=== PATIENT | female | born 1995 | race Caucasian/White ===

== ENCOUNTER 2018-09-04 11:34 | Outpatient (CLI) | payer MEDICAID ==
[~2018-09-04] VITALS: Ht 157.5 cm; Wt 94.6 kg
[2018-09-04 11:51] VITALS: BP 102/55; PULSE 112; RESP 18; Ht 157.5 cm; Wt 94.6 kg
[2018-09-04] MEDS ORDERED: PNV11TAB PO (11:58)
--- NOTE | 2018-09-04 13:31 | PN ---
Triage Information Date/Time September 04, 2018 Reason for visit: Uterine contractions (Patient claims she has uterine contractions during driving which she feels mostly on her right side) Weeks of Gestation 28 /Para 1 para 0 Diabetes: none Hypertention: none Objective Vital Signs Date Temp Pulse Resp B/P (MAP) Pulse Ox O2 O2 Flow FiO2 Time Delivery Rate 09/04/18 98.3 112 18 102/55 11:51 (71) Heart Rate: 150's Heart Rate Comments Reactive for gestational age Contractions: None Results/Medications Result Diagram: 09/04/18 1234 Results 24 hrs Laboratory Tests Test 09/04/18 11:45 09/04/18 12:34 Urine Color YELLOW Urine Clarity CLEAR Urine pH 6.0 Urine Specific [place] 1.009 Urine Ketones NEGATIVE Urine Nitrite NEGATIVE Urine Bilirubin NEGATIVE Urine Urobilinogen NEGATIVE Urine Leukocyte Esterase 2+ H Urine Microscopic RBC 0 Urine Microscopic WBC 2 Urine Squamous Epithelial Cells FEW Urine Bacteria FEW A Urine Mucus FEW A Urine Hemoglobin NEGATIVE Urine Glucose NEGATIVE Urine Total Protein NEGATIVE White Blood Count 9.7 Red Blood Count 3.44 L Hemoglobin 9.7 L Hematocrit 29.3 L Mean Corpuscular Volume 85.2 Mean Corpuscular Hemoglobin 28.2 L Mean Corpuscular Hemoglobin Concent 33.1 Red Cell Distribution Width 13.6 Platelet Count 133 L Mean Platelet Volume 13.5 H Immature Granulocytes % 0.200 Neutrophils % 79.3 H Lymphocytes % 14.1 L Monocytes % 5.6 Eosinophils % 0.6 Basophils % 0.2 Nucleated Red Blood Cells % 0.0 Immature Granulocytes # 0.020 Neutrophils # 7.7 H Lymphocytes # 1.4 Monocytes # 0.5 Eosinophils # 0.1 Basophils # 0.0 Nucleated Red Blood Cells # 0.0 Imaging Results 1. Single live intrauterine fetus, cephalic presentation. The heart rate is 143 bpm. 2. Posterior placenta, grade 1, no previa or abruptio is evident. 3. The cervix is closed and measures 3.7 cm in length. 4. Amniotic fluid index 13.3 cm. 5. Biophysical profile score: 8/8. 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
--- NOTE | 2018-09-04 14:04 | TRIAGE ---
OB Triage Datetime Report Generated by CPN: 09/04/2018 14:04 Datetime: 09/04/2018 13:25 Stage of : OB Triage Datetime: 09/04/2018 13:01 Labor Evaluation Frequency: 0 Monitor Mode: External Pattern: Normal: <= 5 Contractions in 10 Minutes Resting Tone [place]: Relaxed Heart Rate FHR Baseline Rate: 145 Monitor Mode: External US Variability: Moderate 6-25 bpm Accelerations: 10X10 Decelerations: None Category: Category I Pain Assessment Pain Scale: 0 Pain Presence: None/Denies Pain Type: N/A Pain Goal: 3 Pain Relief Measures: Comfort Measures Datetime: 09/04/2018 12:56 Stage of : OB Triage Datetime: 09/04/2018 11:43 Stage of : OB Triage Assessment Type: Triage EGA: 28.6 Maternal Assessment Level of Consciousness: Fully Conscious DTR's/Clonus: DTRs 2+; No Clonus Headache: Denies Blurred Vision: No Respiratory Effort: Unlabored; Regular Rhythm; Equal Expansion Breath Sounds, Left: Clear and Equal Breath Sounds, Right: Clear and Equal Nausea/Vomiting: Denies RUQ Epigastric Pain: Denies Facial Edema: None Temperature Route: Axillary Fall Risk Assessment History of Falling: (0) No Secondary Diagnosis: (0) No Ambulatory Aid: (0) Bedrest/Nurse Assist IV Therapy: (0) No Gait: (0) Normal/Bedrest/Immobile Mental Status: (0) Oriented to Own Ability Fall Score: 0 Fall Risk Score Definition: No Risk: No action required Labor Evaluation Frequency: 0 Monitor Mode: External Pattern: Normal: <= 5 Contractions in 10 Minutes Resting Tone [place]: Relaxed Heart Rate FHR Baseline Rate: 145 Monitor Mode: External US Variability: Moderate 6-25 bpm Decelerations: None Pain Assessment Pain Scale: 0 Pain Presence: None/Denies (Annotations: FEELS STOMACH TIGHTEN AND FEELS A LITTLE DIFFICULT TO ECTOR THE) Pain Type: Pressure Pain Location: Perineum Pain Goal: 3 Pain Relief Measures: Comfort Measures Datetime: 09/04/2018 11:40 Time of Arrival: 09/04/2018 11:26 Arrived By: Ambulatory Arrived From: Home Chief Complaint: C/O UC'S THIS AM ALONG WITH SCANT BLEEDING, DENIES LEAKING OF FLUID Movement: Present Contractions: Occasional Rupture of Membranes: Denies Vaginal Bleeding: Scant Vaginal Discharge: Denies Recent Sexual Intercouse: Denies Abdominal Trauma: Not Applicable Patient Complaints: Contractions; Cramping Time Provider Notified: 09/04/2018 12:56 Provider Notified: VELIA Initial Plan: MONITOR, BPP, CBC, CL, UA
== END 2018-09-04 13:35 | disposition home or self-care (01) ==
LOC: OBT 11:34 → L-D 11:34 → OBT 13:35
PROVIDERS: ATTEND Obstetrics & Gynecology
DX: O62.9 Abnormality of forces of labor, unspecified (principal); Z3A.28 28 weeks gestation of pregnancy
CPT/HCPCS: 76817; 76818; 81001; 85025; 87086; Z7500; G0463

== ENCOUNTER 2018-11-20 07:00 | Inpatient (IN) | payer MEDICAID, OTHER ==
[~2018-11-20] VITALS: Ht 157.5 cm; Wt 96.0 kg
[~2018-11-20 07:00] MED LIST: IBUP-1542 PO; PNV11TAB PO
[2018-11-20 07:34] VITALS: Ht 157.5 cm; Wt 96.0 kg
[2018-11-20 07:38] VITALS: BP 123/79; PULSE 58; RESP 20
[2018-11-20] MEDS ORDERED: METHYLERGONOVINE 0.2 MG INJ IM PRN (11:30)
[2018-11-20] MEDS ORDERED: IBUPROFEN 600 MG TAB PO PRN (11:30)
[2018-11-20] MEDS ORDERED: BUTORPHANOL 2 MG INJ IV PRN (11:30)
[2018-11-20] MEDS ORDERED: CARBOPROST 250 MCG INJ IM PRN (11:30)
[2018-11-20] MEDS ORDERED: OXYTOCIN 30 UNITS/LR 500 ML IV SCH ×3 (11:30)
[2018-11-20] MEDS ORDERED: OXYTOCIN 30 UNITS/LR 500 ML IV PRN (11:30)
[2018-11-20] MEDS ORDERED: MISOPROSTOL 200 MCG TAB PR PRN (11:30)
[2018-11-20] MEDS ORDERED: LIDOCAINE 1% (MPF) 30 ML INJ INJ PRN (11:30)
[2018-11-20] MEDS: LACTATED RINGER'S 1,000 ML IV SCH ×2 (13:26→20:01)
[2018-11-20] MEDS ORDERED: LACTATED RINGER'S 1,000 ML IV PRN (13:36)
[2018-11-20] MEDS: BUTORPHANOL 2 MG INJ IV PRN (23:07)
[2018-11-21] MEDS: LACTATED RINGER'S 1,000 ML IV SCH ×2 (04:06→12:18)
[2018-11-21] MEDS: BUTORPHANOL 2 MG INJ IV PRN ×2 (04:42→12:57)
[2018-11-21] MEDS ORDERED: ONDANSETRON 4 MG INJ IV PRN (14:30)
[2018-11-21] MEDS ORDERED: NALOXONE (0.4 MG/ML) INJ IV PRN (14:30)
[2018-11-21] MEDS ORDERED: DIPHENHYDRAMINE 50 MG INJ IV PRN (14:30)
[2018-11-21] MEDS ORDERED: FENTAnyl 2MCG/ML-ROPIV 0.2% 100 ML BAG EPI SCH (14:30)
[2018-11-21] MEDS ORDERED: LACTATED RINGER'S 1,000 ML IV* SCH (23:14)
[2018-11-21] MEDS ORDERED: MISOPROSTOL 200 MCG TAB PR PRN (23:30)
[2018-11-21] MEDS ORDERED: METHYLERGONOVINE 0.2 MG INJ IM PRN (23:30)
[2018-11-21] MEDS ORDERED: LANOLIN HPA 1 PKT TOP PRN (23:30)
[2018-11-21] MEDS ORDERED: OXYTOCIN 30 UNITS/LR 500 ML IV PRN (23:30)
[2018-11-21] MEDS ORDERED: HYDROCODONE/APAP (5/325) TAB PO PRN (23:30)
[2018-11-21] MEDS ORDERED: CARBOPROST 250 MCG INJ IM PRN (23:30)
[2018-11-22 00:50] VITALS: BP 126/81; PULSE 79; RESP 18
[2018-11-22] MEDS: OXYTOCIN 30 UNITS/LR 500 ML IV SCH ×2 (02:15→08:16)
[2018-11-22 04:20] VITALS: BP 123/80; PULSE 102; RESP 18
[2018-11-22] MEDS: IBUPROFEN 600 MG TAB PO SCH ×4 (05:54→17:32)
[2018-11-22 08:45] VITALS: BP 113/69; PULSE 67; RESP 18
[2018-11-22] MEDS ORDERED: WITCH HAZEL/GLYCERIN PAD PR PRN (14:30)
[2018-11-22] MEDS ORDERED: BENZOCAINE 20% 56 ML SPRAY TOP PRN (14:30)
[2018-11-22 16:25] VITALS: BP 113/69; PULSE 76; RESP 18
[2018-11-22 20:10] VITALS: BP 110/70; PULSE 74; RESP 18
[2018-11-23] MEDS: IBUPROFEN 600 MG TAB PO SCH ×4 (00:51→17:57)
[2018-11-23 03:57] VITALS: BP 114/58; PULSE 86; RESP 18
[2018-11-23 08:00] VITALS: BP 109/68; PULSE 95; RESP 16
[2018-11-23] MEDS ORDERED: MEASLES,MUMPS,RUBELLA VACCINE INJ SC* ONE (09:00)
[2018-11-23] MEDS ORDERED: DIPHTH/TET/ACEL PERTUSS (ADULT) 0.5 ML VIAL IM* ONE (09:00)
[2018-11-23 16:00] VITALS: BP 107/58; PULSE 78; RESP 18
== END 2018-11-23 18:45 | disposition home or self-care (01) | DRG 807 ==
LOC: L-D 07:00 → OBT 07:00 → L-D 11:20 → PP1 11-22 01:00
PROVIDERS: ADMIT Obstetrics & Gynecology; ATTEND Obstetrics & Gynecology
PROC: 10D07Z8 Extraction of Products of Conception, Other, Via Natural or Artificial Opening (ICD-10-PCS; principal; 2018-11-21)
PROC: 0HQ9XZZ Repair Perineum Skin, External Approach (ICD-10-PCS; 2018-11-21)
DX: O48.0 Post-term pregnancy (principal); Z37.0 Single live birth; O70.0 First degree perineal laceration during delivery; Z3A.41 41 weeks gestation of pregnancy; O69.81X0 Labor and delivery complicated by cord around neck, without compression, not applicable or unspecified
CPT/HCPCS: 62322; 76815; 76818; 80053; 81003; 84560; 85025; 85384; 85610; 85730; 86592; 86850; 86900; 86901; 87340; G0463; J0595; J2405; J2590; J3010; J7120